=== PATIENT | male | born 1940 | race Two or more races ===

== ENCOUNTER 2017-06-30 08:08 | Outpatient (CLI) | payer OTHER | END 2017-06-30 08:20 | disposition home or self-care (01) | LOC: LAB 08:08 | DX: I11.9 Hypertensive heart disease without heart failure (principal); E78.2 Mixed hyperlipidemia; R97.0 Elevated carcinoembryonic antigen [CEA]; R10.9 Unspecified abdominal pain; K29.50 Unspecified chronic gastritis without bleeding; N40.0 Benign prostatic hyperplasia without lower urinary tract symptoms ==

== ENCOUNTER → 2017-07-31 | Outpatient (CLI) | payer OTHER | END | disposition home or self-care (01) | LOC: LAB 07:34 | DX: B35.1 Tinea unguium (principal) ==

== ENCOUNTER 2017-11-18 07:19 | Outpatient (CLI) | payer OTHER | END 2017-11-18 07:25 | disposition home or self-care (01) | LOC: LAB 07:19 | DX: I11.9 Hypertensive heart disease without heart failure (principal); E78.2 Mixed hyperlipidemia; R10.84 Generalized abdominal pain; D64.89 Other specified anemias; E78.4 Other hyperlipidemia; R80.8 Other proteinuria; R97.20 Elevated prostate specific antigen [PSA]; N39.0 Urinary tract infection, site not specified; Z12.11 Encounter for screening for malignant neoplasm of colon ==

== ENCOUNTER 2017-12-30 07:34 | Outpatient (CLI) | payer OTHER | END 2017-12-30 07:38 | disposition home or self-care (01) | LOC: SONOGRAMA 07:34 | DX: R31.21 Asymptomatic microscopic hematuria (principal) ==

== ENCOUNTER 2018-02-19 07:43 | Outpatient (CLI) | payer OTHER | END 2018-02-19 09:11 | disposition home or self-care (01) | LOC: LAB 07:43 | DX: Z01.812 Encounter for preprocedural laboratory examination (principal); D68.8 Other specified coagulation defects ==

== ENCOUNTER 2018-07-28 07:24 | Outpatient (CLI) | payer OTHER | END 2018-07-28 07:30 | disposition home or self-care (01) | LOC: LAB 07:24 | DX: E78.2 Mixed hyperlipidemia (principal); I11.9 Hypertensive heart disease without heart failure; R97.0 Elevated carcinoembryonic antigen [CEA]; N40.0 Benign prostatic hyperplasia without lower urinary tract symptoms; Z13.29 Encounter for screening for other suspected endocrine disorder ==

== ENCOUNTER 2018-12-22 07:06 | Outpatient (CLI) | payer OTHER | END 2018-12-22 07:16 | disposition home or self-care (01) | LOC: LAB 07:06 | DX: E78.2 Mixed hyperlipidemia (principal); I11.9 Hypertensive heart disease without heart failure; Z13.29 Encounter for screening for other suspected endocrine disorder ==

== ENCOUNTER 2019-03-22 06:31 | Outpatient (CLI) | payer OTHER | END 2019-03-22 06:37 | disposition home or self-care (01) | LOC: LAB 06:31 | DX: I11.9 Hypertensive heart disease without heart failure (principal); Z13.29 Encounter for screening for other suspected endocrine disorder; E78.2 Mixed hyperlipidemia ==

== ENCOUNTER 2019-07-02 06:42 | Outpatient (CLI) | payer OTHER | END 2019-07-02 09:45 | disposition home or self-care (01) | LOC: LAB 06:42 | DX: E78.2 Mixed hyperlipidemia (principal); R97.0 Elevated carcinoembryonic antigen [CEA]; Z13.29 Encounter for screening for other suspected endocrine disorder; Z12.11 Encounter for screening for malignant neoplasm of colon; I11.9 Hypertensive heart disease without heart failure; N40.0 Benign prostatic hyperplasia without lower urinary tract symptoms; G62.89 Other specified polyneuropathies ==

== ENCOUNTER → 2019-11-24 06:38 | Outpatient (CLI) | payer OTHER | END | disposition home or self-care (01) | LOC: LAB 06:38 | PROVIDERS: ATTEND General Practice | DX: I11.9 Hypertensive heart disease without heart failure (principal); N40.0 Benign prostatic hyperplasia without lower urinary tract symptoms; Z13.29 Encounter for screening for other suspected endocrine disorder; E78.2 Mixed hyperlipidemia; E03.8 Other specified hypothyroidism ==

== ENCOUNTER 2021-10-02 09:28 | Outpatient (CLI) | payer OTHER | END 2021-10-02 09:31 | disposition home or self-care (01) | LOC: SONOGRAMA 09:28 | PROVIDERS: ATTEND Internal Medicine Gastroenterology | DX: R10.13 Epigastric pain (principal); K76.0 Fatty (change of) liver, not elsewhere classified ==

== ENCOUNTER 2022-05-27 15:42 | Emergency (ER) | payer OTHER ==
[~2022-05-27] VITALS: Ht 167.6 cm; Wt 82.6 kg
[2022-05-27] MEDS ORDERED: CRESTOR20 MG PO (15:52)
[2022-05-27] MEDS ORDERED: METFORMIN HCL500 M4 PO (15:52)
[2022-05-27] MEDS ORDERED: CANDESARTAN CIL16 MG PO (15:52)
[2022-05-27] MEDS ORDERED: CELEBREX200MG PO (19:53)
== END 2022-05-27 20:17 | disposition home or self-care (01) ==
LOC: ER 15:42
DX: S13.4XXA Sprain of ligaments of cervical spine, initial encounter (principal); V49.9XXA Car occupant (driver) (passenger) injured in unspecified traffic accident, initial encounter; Y93.9 Activity, unspecified; Y92.9 Unspecified place or not applicable

== ENCOUNTER 2023-01-23 11:40 | Outpatient (CLI) | payer OTHER ==
[~2023-01-23 11:40] MED LIST: CANDESARTAN CIL16 MG PO; CELEBREX200MG PO; CRESTOR20 MG PO; METFORMIN HCL500 M4 PO
== END 2023-01-23 11:45 | disposition home or self-care (01) ==
LOC: RAD 11:40
PROVIDERS: ATTEND Ophthalmology
DX: I15.8 Other secondary hypertension (principal); I10 Essential (primary) hypertension

== ENCOUNTER 2024-02-23 08:17 | Outpatient (CLI) | payer OTHER | END 2024-02-23 08:24 | disposition home or self-care (01) | LOC: MRI 08:17 | PROVIDERS: ATTEND Psychiatry & Neurology Neurology | DX: G31.84 Mild cognitive impairment of uncertain or unknown etiology (principal) | CPT/HCPCS: 70551 ==

== ENCOUNTER 2024-12-21 07:16 | Outpatient (CLI) | payer OTHER | END 2024-12-21 07:24 | disposition home or self-care (01) | LOC: SONOGRAMA 07:16 | PROVIDERS: ATTEND Internal Medicine Gastroenterology | DX: D50.9 Iron deficiency anemia, unspecified (principal); K57.30 Diverticulosis of large intestine without perforation or abscess without bleeding; K76.0 Fatty (change of) liver, not elsewhere classified; K82.8 Other specified diseases of gallbladder ==

== ENCOUNTER 2024-12-28 07:21 | Outpatient (CLI) | payer OTHER | END 2024-12-28 07:23 | disposition home or self-care (01) | LOC: SONOGRAMA 07:21 | PROVIDERS: ATTEND Internal Medicine Gastroenterology | DX: D50.9 Iron deficiency anemia, unspecified (principal); K57.30 Diverticulosis of large intestine without perforation or abscess without bleeding; K76.0 Fatty (change of) liver, not elsewhere classified; K82.8 Other specified diseases of gallbladder ==